=== PATIENT | female | born 1995 | race African-American/Black ===

== ENCOUNTER 2025-02-24 17:47 | Emergency (ER) | payer OTHER, SELFPAY ==
[2025-02-24 17:49] VITALS: BP 120/61; PULSE 97; RESP 18; TEMP 37.1; O2SAT 97; BMI 25.6
--- NOTE | 2025-02-24 18:06 | ED.GENADULT ---
HPI - General Adult General Chief complaint: Dyspnea Stated complaint: fatigue,sob Time Seen by Provider: 02/24/25 19:02 History of Present Illness ED Provider: DUPLICATE CHART ENTERED IN ERROR Related Data Allergies Allergy/AdvReac Type Severity Reaction Status Date / Time No Known Allergies (No Known Allergy Verified 02/24/25 17:51 Allergies*) [facility] Social History Social History Smoked in Last 30 Days: No Use of substances other than those prescribed or required for medical reasons: No Any prior treatment program specific to substance use: No Advance Directives: No Advance Directives Information Provided: No Do you have a plan to hurt others: No Plan Patient : No Physical Exam ED Vital Signs: Vital Signs - 24 hr 02/24/25 17:49 02/24/25 18:57 Temperature 98.7 F 98.2 F Pulse Rate 97 85 Respiratory Rate 18 18 Blood Pressure 120/61 103/61 Pulse Oximetry 97 98 Oxygen Delivery Method Nasal Cannula Room Air BMI result Body Mass Index 25.6 Course Course Course Narrative: Rapid medical examination performed in triage by Jessica Arreola PA-C. Patient is a 30 year old assigned female at presenting to the emergency department with concerns she is anemic after having increased shortness of breath while on her period. Detailed physical exam and review of systems are deferred to the crossing tender. Labs ordered. Patient placed back in the waiting room pending room availability and results. Medical Decision Making Lab Data 02/24/25 18:06 02/24/25 18:06 Labs: Lab Results 02/24/25 Range/Units 18:06 WBC 4.1 L (4.8-10.8) X10*3/uL RBC 4.62 (4.20-5.50) X10*6/uL Hgb 12.2 (12.0-16.0) g/dl Hct 34.8 L (37.0-47.0) % MCV 75.3 L (80.0-98.0) fL MCH 26.4 L (27.0-33.0) pg MCHC 35.1 H (31.0-35.0) g/dl RDW 14.6 (11.0-16.0) % Plt Count 226 (160-400) X10*3/uL MPV 9.3 L (9.4-12.3) fL Immature Gran % (Auto) 0.2 (0.0-0.4) % Neut % (Auto) 53.1 (45-73) % Lymph % (Auto) 33.1 (20-40) % [place] % (Auto) 11.4 H (2-11) % Eos % (Auto) 1.7 (0-4) % Baso % (Auto) 0.5 (0-2) % Lymph # (Auto) 1.4 (1.2-4.9) X10*3/uL [place] # (Auto) 0.5 (0.1-1.2) X10*3/uL Eos # (Auto) 0.1 (0.0-0.4) X10*3/uL Baso # (Auto) 0.0 (0.0-0.2) X10*3/uL Abs Immat Gran (auto) 0.01 (0.00-0.03) X10*3/uL Absolute Neuts (auto) 2.2 (2.0-8.3) x10*3/uL Absolute Nucleated RBC 0.000 (0.0-0.012) X10*3/uL Nucleated RBC % (auto) 0.0 (0.0-0.2) /100WBC Sodium 138 (135-145) mmol/L Potassium 4.0 (3.3-5.1) mmol/L Chloride 102 (96-108) mmol/L Carbon Dioxide 27 (22-29) mmol/L Anion Gap 13 (12-20) BUN 10 (9-16) mg/dL Creatinine 0.89 (0.5-1.4) mg/dL Estim Creat Clear Calc 91.5 Estimated GFR > 60 Random Glucose 110 (60-115) mg/dL Calcium 9.7 (8.4-10.2) mg/dL Total Bilirubin 0.9 (0.0-1.0) mg/dL AST 20 (5-31) U/L ALT 24 (0-31) U/L Alkaline Phosphatase 48 (39-117) U/L Total Protein 7.8 (6.5-8.0) g/dL Albumin 4.5 (3.5-5.0) g/dL Beta HCG, Quant < 2 mIU/mL Discharge Plan Discharge Clinical Impression: Encounter for medical screening examination Patient Disposition: Home, Self-Care Instructions: Normal Exam (ED) Additional Instructions: You were evaluated in the emergency department. We do not find any significant or actionable lab findings. Your hemoglobin or blood count was in the normal range 12.2. We had no prior comparisons. Call your OBGYN or primary physician for follow up if you have further concerns. We checked an ambulation oxygen this means you were walked and exerted and you do not have any significant rapid heart rate or drop in your oxygen this is reassuring. If you develop severe shortness of breath severe chest pain extremely heavy vaginal bleeding severe fatigue as we discussed you may want to return to the emergency department but call your primary doctor and/or cavity pump operator for follow up Interventions: ED Discharge Assessment Last Done: 02/24/25 21:36 Discharge Date/Time: 02/24/25 21:39 Print Language: [place]
[2025-02-24 18:10] LABS: MANUAL DIFF FLAG NO
[2025-02-24 18:11] LABS: Hematocrit 34.8 % (37.0-47.0); Hemoglobin 12.2 g/dl (12.0-16.0); Imm Gran Abs Auto 0.01 X10*3/uL (0.00-0.03); Imm Gran Pct Auto 0.2 % (0.0-0.4); Lymphocytes Absolute Auto 1.4 X10*3/uL (1.2-4.9); Mean Corpuscular HGB Conc 35.1 g/dl (31.0-35.0); Mean Corpuscular Hemoglobin 26.4 pg (27.0-33.0); Mean Corpuscular Volume 75.3 fL (80.0-98.0); NRBC Abs Auto 0.000 X10*3/uL (0.0-0.012); NRBC Pct Auto 0.0 /100WBC (0.0-0.2); Platelet Count 226 X10*3/uL (160-400); Red Blood Count 4.62 X10*6/uL (4.20-5.50); White Blood Count 4.1 X10*3/uL (4.8-10.8)
[2025-02-24 18:34] LABS: Alanine Aminotransferase 24 U/L (0-31); Albumin Level 4.5 g/dL (3.5-5.0); Alkaline Phosphatase 48 U/L (39-117); Anion Gap 13 (12-20); Aspartate Amino Transferase 20 U/L (5-31); Blood Urea Nitrogen 10 mg/dL (9-16); Calcium 9.7 mg/dL (8.4-10.2); Carbon Dioxide 27 mmol/L (22-29); Chloride 102 mmol/L (96-108); Creatinine Clr Calc Pharmacy 91.5; Estimated Glomerular Filt Rate > 60; Potassium 4.0 mmol/L (3.3-5.1); Sodium 138 mmol/L (135-145); Total Protein 7.8 g/dL (6.5-8.0)
--- OUTSIDE RECORDS SUMMARY | 2025-02-24 18:44 | XMS_ITS | Clinical Summary ---
Author Organization [address] Address [address] [place] [id number] Phone Care Team Providers Care Sales Support Associate Name Role Phone Cathy Hays MD Primary Care Provider [phone] Allergies No known active allergies Medications ARIPiprazole (ABILIFY) 10 mg tablet Take 1 Tablet by mouth daily. Active Active Problems Problem Noted Date Diagnosed Date Binge eating 11/05/2023 Eating disorder 11/05/2023 Sickle cell trait ([facility] V24) 03/05/2023 Vitamin D insufficiency 03/05/2023 Psychosis ([facility] V24, [facility] V28) 06/15/2019 Overview (03/25/2024): Multiple ED visits, diangosis unclear HSV-1 (herpes simplex virus 1) infection 017 Anxiety and depression 10/30/2016 Overview (03/25/2024): Inpatient admission 04/11/17 Compulsive behavior 10/30/2016 Allergic rhinitis 10/14/2016 Immunizations Name Administration Dates Next Due DTaP (Infanrix) 6wks to less than 7yo ,07/07/1997,1996,06/12,1996 [id number] (Pentacel) 2mo to less than 5yo 07/07/1997,1996,1996,03/13 HPV, Quadrivalent 09/27/2008,05/29/2008,03/30/20 08 Hepatitis B Pediatric (Enger ix B; Recombivax HB) to less than 20 yo 01/04/1997,1996,1996 IPV Inactivated polio (Ipol) 6wks and older 01/17/2001 MMR, measles mumps and rubel la Live (Priorix; M-M-R II) 12mo and older 01/17/2001,1996 Meningococcal MCV4P 02/19/2012,05/29/2008 OPV 07/07/1997, 7,1996,03/13 Tdap Tetanus diptheria acell ular pertussis (Boostrix; Adacel) 7yo and older 03/05/2023,03/30/2008 Varicella live (Varivax) 12m o and older 03/30/2008,10/29/1997 Surgical History Surgery Date Site/Laterality Comments OTHER SURGICAL HISTORY PROCEDURE: DENIES PREVIOUS SURGERY Medical History Medical History Date Comments Allergic rhinitis 10/14/2016 Sickle cell trait ([facility] V24) Vitamin D insufficiency 03/05/2023 Family History Medical History Relation Name Comments Breast cancer Aunt 3 maternal gre at aunts Other: alive and well Father Other: DVT Mother Sickle cell tra it; goiter Breast cancer Other maternal great grandmother Relation Name Status Comments Aunt Alive Father Alive Mother Alive Other Social History Tobacco Use Types Packs/Day Years Used Date Smoking Tobacco: Never Smokeless Tobacco: Never Tobacco Cessation:Counseling Given: Not Answered Alcohol Use Standard Drinks/Week Comments No 0 (1 standard drink = 0.6 oz pur e alcohol) Comments No Sex and Gender Information Value Date Recorded Sex Assigned at Not on file Legal Sex Female 6:57 PM EST Gender Identity Not on file Sexual Orientation Not on file Obstetrics History Last Filed Vital Signs Vital Sign Reading Time Taken Comments Blood Pressure 100/56 10/25/2024 4:22 PM EDT Pulse 94 10/25/2024 4:22 PM EDT Temperature 36.7 C (98 F) 10/25/2024 4:22 PM EDT Respiratory Rate 14 10/25/2024 4:22 PM EDT Oxygen Saturation 98% 10/25/2024 4:22 PM EDT Inhaled Oxygen Concentration - - Weight 83.3 kg (183 lb 9.6 oz) 10/25/2024 4:22 P M EDT Height 166.4 cm (5' 5.5 ) 10/25/2024 4:22 PM EDT Body Mass Index 30.09 10/25/2024 4:22 PM EDT Plan of Treatment Health Maintenance Due Date Last Done Comments Cervical Cancer Screening: Pap Smear 01/02/2017 Depression Screening 06/14/2024 Social Influencers of Health Screening 05/08/2025 05/08/2024 Cholesterol Screening (Lipid Panel) 03/05/2028 03/05/2023 DTaP,Tdap,and Td Vaccines (8 - Td or Tdap) 03/05/2033 03/05/2023, 03/30/2008, 01/17/2001, Additional history exists Hepatitis B Vaccines Completed 01/04/1997, 1996, 1996 HIB Vaccines Completed 07/07/1997, 08/12, 1996, Additional history exists IPV Vaccines Completed 01/17/2001, 06/15, 07/07/1997, Additional history exists MMR Vaccines Completed 01/17/2001, 1996 Varicella Vaccines Completed 03/30/2008, 10/29/1997 HPV Vaccines Completed 09/27/2008, 05/14, 03/30/2008 Meningococcal ACWY Vaccine Completed 02/19/2012, HIV Screening Completed 05/08/2024, 11/05/2023 Hepatitis C Screening Completed 05/08/2024, 024 COVID-19 Vaccine Discontinued Hepatitis A Vaccines Aged Out No long er eligible based on patient's age to complete this topic Influenza Vaccine Discontinued Meningococcal B Vaccine Aged Out No l onger eligible based on patient's age to complete this topic Pneumococcal Vaccine: Pediatrics (0 to 5 Years) and At-Risk Patients (6 to 49 Years) Discontinued RSV Immunization Patients Under 20 months Aged Out No longer eligible based on patient's age to complete this topic Procedures Procedure Name Priority Date/Time Associated Diagnosis Comments HEPATITIS C ANTIBODY Routine 05/08/2024 11:52 AM EST Screen for STD (sexually transmitted disease) HIV 1, 2 ANTIBODY, P24 ANTIGEN WITH REFLEX TO DIFFERENTIATION Routine 05/08/2024 11:52 AM EST Screen for STD (sexually transmitted disease) LIPID PANEL Routine 03/05/2023 from Last 3 Months or Most Recently Relevant to Health Maintenance Results * Hepatitis C antibody (05/08/2024 11:52 AM EST) Hepatitis C Antibody Negative Negative LAB CHEMISTRY METHOD 05/08/2024 3:21 PM EST [facility] Blood Venous blood specimen / Unknown Venipuncture / Unknown 05/08/2024 11:52 AM EST 05/08/2024 11:52 AM EST [facility] LAB BLOOD ORDERABLES Final Resul t Performing Organization Address [facility]/ZIP Co de Phone Number [facility] [address] [place] [address], * HIV 1,2 antibody, p24 antigen with reflex to differentiation (05/08/2024 11:52 AM EST) HIV Combo AB/AG Negative Negative LAB CHEMISTRY METHOD 05/08/2024 3:23 PM EST [facility] Blood Venous blood specimen / Unknown Venipuncture / Unknown 05/08/2024 11:52 AM EST 05/08/2024 11:52 AM EST Narrative [facility] - 05/08/2024 3:23 PM EST This assay is a 4th generation assay allowing for earlier detection of HIV infection by detecting the presence of the HIV-1 p24 antigen as well as the traditional antibodies to HIV type 1 (including group O) and type 2. Use of a 4th generation assay is the current CDC recommendation for HIV screening. [facility] LAB BLOOD ORDERABLES Final Resul t Performing Organization Address City/[facility]/ZIP Co de Phone Number [facility] [address], [place] [address] [phone] * (ABNORMAL) Lipid panel (03/05/2023) LDL/HDL Ratio 3 0 - 4 Triglycerides 45 0 - 150 mg/dL Cholesterol 202(A) 0 - 200 mg/dL HDL 67 >=40 mg/dL LDL Cholesterol 126(A) 0 - 100 mg/dL Blood Venous blood specimen / Unknown Historical Provider LAB BLOOD ORDERABLES Anjana l Result from Last 3 Months or Most Recently Relevant to Health Maintenance Insurance [facility] [employer] Care Teams Sales Support Associate Relationship Specialty Start Date End Date Cathy Hays MD [address] [place] [phone] PCP - General Internal Medicine 05/06/21
[2025-02-24 18:57] VITALS: BP 103/61; PULSE 85; RESP 18; TEMP 36.8; O2SAT 98
--- NOTE | 2025-02-24 20:23 | ED.GENADULT ---
HPI - General Adult General Chief complaint: Dyspnea Stated complaint: fatigue,sob Time Seen by Provider: 02/24/25 19:02 History of Present Illness ED Provider: ana Related Data Allergies Allergy/AdvReac Type Severity Reaction Status Date / Time No Known Allergies (No Known Allergy Verified 02/24/25 17:51 Allergies*) [facility] Social History Social History Smoked in Last 30 Days: No Use of substances other than those prescribed or required for medical reasons: No Any prior treatment program specific to substance use: No Advance Directives: No Advance Directives Information Provided: No Do you have a plan to hurt others: No Plan Patient : No Physical Exam ED Exam Exam: EXAM: Gen: Alert, awake, well appearing, well hydrated. Head: Atraumatic Eyes: Anicteric, Normal conjunctiva. ENT: Moist mucosa, no pallor. Neck: Supple. Respiratory: Breathing comfortably, No distress.Clear to auscultation bilaterally, symmetric chest expansion, No wheeze, rales, ronchi. Cardiovascular: Regular rate and rhythm. No murmurs or rub. Well perfused periphery, warm extremities. No edema. Abdominal: Soft, no objective distension. No palpable masses or obvious organomegaly. No focal tenderness, no guarding, no rebound tenderness or other peritoneal findings. : No flank tenderness. Neuro: Alert. Gross movement of all extremities intact. Vital signs: See flowsheet Vital Signs: Vital Signs - 24 hr 02/24/25 17:49 02/24/25 18:57 Temperature 98.7 F 98.2 F Pulse Rate 97 85 Respiratory Rate 18 18 Blood Pressure 120/61 103/61 Pulse Oximetry 97 98 Oxygen Delivery Method Nasal Cannula Room Air BMI result Body Mass Index 25.6 Medical Decision Making Lab Data [facility] Lab Attestation statement: I reviewed the patient's lab results. 02/24/25 18:06 02/24/25 18:06 Labs: Lab Results 02/24/25 Range/Units 18:06 WBC 4.1 L (4.8-10.8) X10*3/uL RBC 4.62 (4.20-5.50) X10*6/uL Hgb 12.2 (12.0-16.0) g/dl Hct 34.8 L (37.0-47.0) % MCV 75.3 L (80.0-98.0) fL MCH 26.4 L (27.0-33.0) pg MCHC 35.1 H (31.0-35.0) g/dl RDW 14.6 (11.0-16.0) % Plt Count 226 (160-400) X10*3/uL MPV 9.3 L (9.4-12.3) fL Immature Gran % (Auto) 0.2 (0.0-0.4) % Neut % (Auto) 53.1 (45-73) % Lymph % (Auto) 33.1 (20-40) % [place] % (Auto) 11.4 H (2-11) % Eos % (Auto) 1.7 (0-4) % Baso % (Auto) 0.5 (0-2) % Lymph # (Auto) 1.4 (1.2-4.9) X10*3/uL [place] # (Auto) 0.5 (0.1-1.2) X10*3/uL Eos # (Auto) 0.1 (0.0-0.4) X10*3/uL Baso # (Auto) 0.0 (0.0-0.2) X10*3/uL Abs Immat Gran (auto) 0.01 (0.00-0.03) X10*3/uL Absolute Neuts (auto) 2.2 (2.0-8.3) x10*3/uL Absolute Nucleated RBC 0.000 (0.0-0.012) X10*3/uL Nucleated RBC % (auto) 0.0 (0.0-0.2) /100WBC Sodium 138 (135-145) mmol/L Potassium 4.0 (3.3-5.1) mmol/L Chloride 102 (96-108) mmol/L Carbon Dioxide 27 (22-29) mmol/L Anion Gap 13 (12-20) BUN 10 (9-16) mg/dL Creatinine 0.89 (0.5-1.4) mg/dL Estim Creat Clear Calc 91.5 Estimated GFR > 60 Random Glucose 110 (60-115) mg/dL Calcium 9.7 (8.4-10.2) mg/dL Total Bilirubin 0.9 (0.0-1.0) mg/dL AST 20 (5-31) U/L ALT 24 (0-31) U/L Alkaline Phosphatase 48 (39-117) U/L Total Protein 7.8 (6.5-8.0) g/dL Albumin 4.5 (3.5-5.0) g/dL Beta HCG, Quant < 2 mIU/mL Independent Interpretation I performed an independent interpretation of an: EKG Discharge Plan Discharge Clinical Impression: Encounter for medical screening examination Patient Disposition: Home, Self-Care Instructions: Normal Exam (ED) Additional Instructions: You were evaluated in the emergency department. We do not find any significant or actionable lab findings. Your hemoglobin or blood count was in the normal range 12.2. We had no prior comparisons. Call your OBGYN or primary physician for follow up if you have further concerns. We checked an ambulation oxygen this means you were walked and exerted and you do not have any significant rapid heart rate or drop in your oxygen this is reassuring. If you develop severe shortness of breath severe chest pain extremely heavy vaginal bleeding severe fatigue as we discussed you may want to return to the emergency department but call your primary doctor and/or sink cutter for follow up Interventions: ED Discharge Assessment Last Done: 02/24/25 21:36 Discharge Date/Time: 02/24/25 21:39 Print Language: [place]
[2025-02-24 20:58] VITALS: PULSE 106
[2025-02-24 21:00] VITALS: BP 113/69; PULSE 81; RESP 16; TEMP 37.1; O2SAT 97
[2025-02-24 21:36] VITALS: BP 113/69; PULSE 81; RESP 16; TEMP 37.1; O2SAT 97
== END 2025-02-24 21:39 | disposition home or self-care (01) ==
PROVIDERS: Emergency Provider Emergency Medicine; PCP Internal Medicine
DX: R06.02 Shortness of breath (principal); R53.83 Other fatigue; Z13.0 Encounter for screening for diseases of the blood and blood-forming organs and certain disorders involving the immune mechanism
CPT/HCPCS: 36415; 80053; 84702; 85025; 99283; 99284